=== PATIENT | female | born 1995 | race Two or more races ===

== ENCOUNTER 2022-07-31 19:03 | Emergency (ER) | payer OTHER ==
[~2022-07-31] VITALS: Ht 160 cm; Wt 127.0 kg
[2022-07-31] MEDS ORDERED: CARAFATE1 GM PO (21:52)
[2022-07-31] MEDS ORDERED: PEPCID AC20 MG PO (21:52)
== END 2022-07-31 22:13 | disposition home or self-care (01) ==
LOC: ER 19:03
DX: K29.70 Gastritis, unspecified, without bleeding (principal)